=== PATIENT | female | born 1980 | race American Indian/Alaskan Native ===

== ENCOUNTER 2022-05-07 05:52 | Emergency (ER) | payer BC, MEDICAID ==
[2022-05-07] MEDS ORDERED: Clindamycin Phosphate 900 MG in Sodium Chloride 0.9% 100 ML IV ONE (06:29)
[2022-05-07] MEDS: Sodium Chloride 0.9% 10 ML Syringe FLUSH PRN (06:38)
[2022-05-07] MEDS: Clindamycin in 0.9 % Sod Chlor 900 MG/50 ML BAG IV ONE (07:24)
[2022-05-07] MEDS: Sulfamethoxazole/Trimethoprim 800-160 MG Tab PO ONE (07:28)
== END 2022-05-07 08:10 | disposition home or self-care (01) ==
LOC: FB.ED 05:52
DX: L03.116 Cellulitis of left lower limb (principal); D50.9 Iron deficiency anemia, unspecified
CPT/HCPCS: 36415; 85027; 86140; 96365; 99282; 99283-25; A9270-GY; J3490